=== PATIENT | female | born 1965 | race Caucasian/White ===

== ENCOUNTER 2019-09-30 15:08 | Outpatient (CLI) | payer BC, SELFPAY ==
--- NOTE | ~2019-09-30 | MM_ITS ---
EXAMINATION: MM screening marcin BI w tommy HISTORY: Screening mammogram TECHNIQUE: Craniocaudal and mediolateral oblique 3-D tomosynthesis images were obtained and synthetic 2-D images were generated. CAD analysis was submitted and interpreted. COMPARISON: 09/21/2018, 09/17/2017, 09/04/2016 bilateral digital screening mammogram examinations BREAST PARENCHYMAL COMPOSITION: There are scattered areas of fibroglandular density. FINDINGS: There is no evidence of suspicious mass, calcification, or architectural distortion to sugg est malignancy in either breast. There has been no suspicious interval change. IMPRESSION: 1. No mammographic evidence of malignancy. 2. Recommend routine screening mammography in one year. BI-RADS Category 1: Negative Reviewed, dictated and finalized at location A.
== END 2019-09-30 15:09 | disposition home or self-care (01) ==
LOC: ANHIMG 15:17
PROVIDERS: PCP Family Medicine; Visit Provider Advanced Practice Midwife
DX: Z12.31 Encounter for screening mammogram for malignant neoplasm of breast (principal)
CPT/HCPCS: 77063; 77067

== ENCOUNTER 2019-10-22 08:06 | Emergency (ER) | payer BC, SELFPAY ==
--- NOTE | ~2019-10-22 | XR_ITS ---
EXAMINATION: XR ankle LT min 3V DATE: 10/22/2019 08:42 INDICATION: Left ankle pain TECHNIQUE: Anteroposterior, lateral, mortise, and additional oblique view of the ankle were obtained. COMPARISON: None. FINDINGS: There is lateral soft tissue swelling. No fracture, dislocation, or subluxation is identifi ed. Ankle mortise is normal. Dorsal and plantar calcaneal enthesophytes are noted. IMPRESSION: 1. Soft tissue swelling without acute osseous abnormality. Reviewed, dictated and finalized at location A.
--- NOTE | ~2019-10-22 | XR_ITS ---
EXAMINATION: XR foot LT min 3V DATE: 10/22/2019 08:42 INDICATION: Left foot pain TECHNIQUE: Dorsoplantar, lateral, and 2 oblique views of the left foot were obtained. COMPARISON: 06/11/2009 FINDINGS: There is no fracture, dislocation, or subluxation. Dorsal and plantar calcaneal enthesophyt es are noted. There is dorsal and lateral soft tissue swelling of the foot. IMPRESSION: 1. Soft tissue swelling without acute osseous abnormality. Reviewed, dictated and finalized at location A.
[2019-10-22 08:25] VITALS: BP 134/80; PULSE 102; RESP 16; TEMP 37.4; O2SAT 99
--- NOTE | 2019-10-22 08:29 | PC.NURSE ---
0826- Pt taken straight to xray from triage
--- NOTE | 2019-10-22 08:37 | ED.LOWEXIN ---
HPI - Extremity Injury (Lower) General Chief Complaint: Extremity Injury, Lower Stated Complaint: Ankle injury Source: patient and RN notes reviewed Mode of arrival: ambulatory (crutches) Limitations: no limitations History of Present Illness HPI Narrative: This is a 54 years old female presents to the office for an evaluation of left ankle injury last night. She was going down the step and missed a step, twisted and inverted her ankle. Currently, she complains of pain and swelling. She tried neo bandage, ice and tylenol for her symptoms. Denies head injury/dizziness prior to accident. Denies history of the fracture/surgery on affected area. Related Data Home Medications Medication Instructions Recorded Confirmed atorvastatin [Lipitor] 10 mg PO DAILY 10/22/19 10/22/19 Allergies Allergy/AdvReac Type Severity Reaction Status Date / Time metronidazole Allergy Unknown Unknown Verified 10/22/19 08:47 Penicillins Allergy Unknown Skin Verified 10/22/19 08:47 irritation Review of Systems Review of Systems: Narrative: CONSTITUTIONAL: Denies feeling ill CARDIOVASCULAR: Denies chest pain, palpitation RESPIRATORY: Denies dyspnea, wheezing GASTROINTESTINAL: Denies abdominal pain, nausea, vomiting SKIN: Denies rash/skin abrasion MUSCULOSKELETAL: Reports right knee pain and backpain after injury which has resolved. Reports left ankle/foot pain with swelling. NEUROLOGIC: Denies lightheaded All other systems reviewed are negative, except as documented in HPI. [facility] Past Medical History Medical History (Updated 10/22/19 @ 08:58 by HI De La Torre) Diverticulitis HLD (hyperlipidemia) Surgical History Surgical History H/O colonoscopy H/O lumbar discectomy Family History Family History Sibling Diabetes mellitus Depression Family history of Parkinson's disease Carcinoma of colon Mother Depression Family history of Parkinson's disease Family history of dementia Father Carcinoma of colon Other No family history of cardiovascular disease No family history of malignant neoplasm Social History Social History Alcohol intake: current Gender identity (if verbalized by the patient): Female Comments At time of signature, I agree with nursing past medical, surgical, social and family history. There is no relevant family history pertinent to the presenting complaint. Exam Narrative: Exam Narrative: GENERAL: This is a well-nourished, well-developed patient, in no apparent distress. CARDIOVASCULAR: Regular rate and rhythm without murmurs, gallops, or rubs. RESPIRATORY: Clear to auscultation. Breath sounds equal bilaterally. No wheezes, rales, or rhonchi. GASTROINTESTINAL: Abdomen soft, non-tender, nondistended. Bowel sounds are active. No guarding. SKIN: warm, intact with no suspicious lesions or rash, good texture and turgor. NEURO: awake, alert, and oriented to person, place and time. There were no obvious focal neurologic abnormalities. EXTREMITIES: The ankle is swollen and tender over the lateral aspect but the skin is intact and there is no ligamentous instability. There is no deformity. The foot and toes are warm and well-perfused; however there is tenderness over the dorsal aspect of foot without swelling/deformity. Sensation to pain and light touch is intact. The skin is intact. Course Vital Signs Vital signs: Vital Signs Temperature 99.3 F 10/22/19 08:25 Pulse Rate 102 H 10/22/19 08:25 Respiratory Rate 16 10/22/19 08:25 Blood Pressure 134/80 10/22/19 08:25 Pulse Oximetry 99 10/22/19 08:25 Temperature 99.3 F 10/22/19 08:25 Pulse Rate 102 H 10/22/19 08:25 Respiratory Rate 16 10/22/19 08:25 Blood Pressure 134/80 10/22/19 08:25 Pulse Oximetry 99 10/22/19 08:25 MDM - Extremity Injury (Low
== END 2019-10-22 09:00 | disposition home or self-care (01) ==
PROVIDERS: Emergency Provider Nurse Practitioner; PCP Family Medicine
DX: S93.402A Sprain of unspecified ligament of left ankle, initial encounter (principal); S96.912A Strain of unspecified muscle and tendon at ankle and foot level, left foot, initial encounter; W10.9XXA Fall (on) (from) unspecified stairs and steps, initial encounter; S99.922A Unspecified injury of left foot, initial encounter; E78.5 Hyperlipidemia, unspecified
CPT/HCPCS: 73610; 73630; 99213; G0463

== ENCOUNTER 2020-08-16 14:15 | Outpatient (CLI) | payer BC, SELFPAY ==
--- NOTE | 2020-08-16 14:24 | ECHO_ITS ---
Patient Info Name: Lakia Dutta Age: 55 years : 1965 Gender: Female Ht: 62 in Wt: 245 lbs BSA: 2.27 m2 HR: 89 bpm BP: 131 / 95 mmHg Technical Quality: Poor Exam Date: 08/16/2020 2:48 PM Exam Location: [facility] Patient Status: Outpatient Admit Date: 08/16/2020 Staff Ordering Physician: Radha Hagen PA-C Turkish Line Attendant: BETTYE Attending Provider: Radha Hagen PA-C Referring Physician: Xiao NAZARIO; Exam Type: CA echo doppler color flow Study Info Indications - LOCALIZED EDEMA Complete two-dimensional, color flow and Doppler transthoracic echocardiogram is performed. Summary 1. Complete two-dimensional, color flow and Doppler transthoracic echocardiogram is performed. 2. Technically suboptimal study due to poor sonographic images. 3. Left ventricular chamber dimension is normal. 4. Left ventricular systolic function is normal, estimated at 55-60%. 5. The left ventricular diastolic function is normal. 6. E/e' 6 is not elevated. 7. No pulmonary hypertension, estimated pulmonary arterial systolic pressure is 9 mmHg. Left Ventricle E/e' 6 is not elevated. Technically suboptimal study due to poor sonographic images. Left ventricular chamber dimension is normal. Left ventricular systolic function is normal, estimated at 55-60%. The left ventricular diastolic function is normal. Right Ventricle Right ventricular chamber dimension is normal. Right ventricular systolic function is normal. Left Atria Left atrial chamber dimension is normal. Right Atria Right atrial chamber dimension is normal. Aortic Valve The aortic valve is not well visualized. There is no aortic valve stenosis. There is no aortic valve regurgitation. Pulmonic Valve There is no pulmonic regurgitation. Mitral Valve There is no mitral valve stenosis. There is no mitral valve regurgitation. Tricuspid Valve There is no tricuspid valve regurgitation. No pulmonary hypertension, estimated pulmonary arterial systolic pressure is 9 mmHg. Pericardium/Pleural There is no pericardial effusion. Inferior Vena Cava Normal inferior vena cava with >50% collapse upon inspiration consistent with normal right atrial pressure, 5 mmHg. Aorta The aortic root size at the sinus of Valsalva is normal. Left Ventricular Outflow Tract Name Value Normal LVOT 2D LVOT Diameter 2.2 cm LVOT Doppler LVOT Peak Gradient 4 mmHg LVOT Mean Gradient 2 mmHg LVOT VTI 16 cm LVOT VTI/AV VTI Ratio 0.7 LVOT Stroke Volume 64 ml LVOT CO 15.7 l/min LVOT CI 6.9 l/min/m2 Pulmonic Valve Name Value Normal PV Doppler PV Peak Gradient 6
== END 2020-08-16 14:16 | disposition home or self-care (01) ==
PROVIDERS: PCP Family Medicine; Visit Provider Physician Assistant
DX: R60.0 Localized edema (principal); Z86.19 Personal history of other infectious and parasitic diseases
CPT/HCPCS: 93306

== ENCOUNTER 2021-04-02 16:52 | Emergency (ER) | payer BC, SELFPAY ==
[2021-04-02 16:54] VITALS: BP 147/94; PULSE 118; RESP 20; TEMP 36.3; O2SAT 98
[2021-04-02 18:52] VITALS: BP 119/90; PULSE 110; TEMP 37.9; O2SAT 95
--- NOTE | 2021-04-02 20:38 | PC.NURSE ---
Pt approached triage desk and states Im not waiting any more. You can note that . Pt then ambulated out of ED with steady gait, in no obvious distress.
== END 2021-04-03 03:16 | disposition left against medical advice (07) ==
LOC: ANHED 20:42
PROVIDERS: PCP Family Medicine
DX: Z53.21 Procedure and treatment not carried out due to patient leaving prior to being seen by health care provider (principal)
CPT/HCPCS: 99199

== ENCOUNTER → 2021-04-03 14:56 | Outpatient (CLI) | payer BC, SELFPAY ==
--- NOTE | ~2021-04-03 | CT_ITS ---
EXAMINATION: CT abdomen pelvis w con DATE: 04/03/2021 15:19 INDICATION: Left lower quadrant abdominal pain. TECHNIQUE: Computed tomography (CT) of the abdomen and pelvis was performed with 100 mL Omnipaque 350 intravenous contrast. Automated exposure control and iterative reconstruction technique were employe d. The dose-length product was 1066.51 mGy-cm. COMPARISON: CT abdomen and pelvis 06/12/2018 FINDINGS: The visualized portions of the lung bases demonstrate mild atelectasis. There are bilateral posterior diaphragmatic hernias containing fat. No pleural effusion. The heart size is normal. No pe ricardial effusion. There is a small sliding hiatal hernia. There is a 6 mm cyst in the liver. The ga llbladder, spleen, pancreas, adrenal glands, and kidneys are normal. There are scattered diverticula in the colon. There is fat stranding around a diverticulum of the sigmoid colon, consistent with dive rticulitis. There are no dilated loops of bowel. The appendix is normal. There are no pathologically enlarged lymph nodes. There is no free intraperitoneal fluid. There is moderate lower lumbar spondylo sis. IMPRESSION: 1. Acute sigmoid diverticulitis. No perforation or abscess. Reviewed, dictated and finalized at location D. RACT GRAPHIC DESIGNER
== END ==
PROVIDERS: PCP Family Medicine; Visit Provider Physician Assistant
DX: K57.32 Diverticulitis of large intestine without perforation or abscess without bleeding (principal)
CPT/HCPCS: 74177; Q9967

== ENCOUNTER 2021-06-08 09:09 | Outpatient (CLI) | payer BC, SELFPAY ==
--- NOTE | ~2021-06-08 | MM_ITS ---
EXAMINATION: MM screening marcin BI w tommy HISTORY: Screening TECHNIQUE: Craniocaudal and mediolateral oblique 3-D tomosynthesis images were obtained and synthetic 2-D images were generated. CAD analysis was submitted and interpreted. COMPARISON: Comparison to multiple prior studies sequentially, with oldest reviewed study dated 08/24. BREAST PARENCHYMAL COMPOSITION: There are scattered areas of fibroglandular density. FINDINGS: There is no evidence of suspicious mass, calcification, or architectural distortion to sugg est malignancy in either breast. There has been no suspicious interval change. IMPRESSION: 1. No mammographic evidence of malignancy. 2. Recommend routine screening mammography in one year. BI-RADS Category 1: Negative Reviewed, dictated and finalized at location A. RUCTIONAL LEADER
== END 2021-06-08 09:10 | disposition home or self-care (01) ==
LOC: ANHIMG 09:11
PROVIDERS: PCP Family Medicine; Visit Provider Family Medicine
DX: Z12.31 Encounter for screening mammogram for malignant neoplasm of breast (principal)
CPT/HCPCS: 77063; 77067

== ENCOUNTER 2021-11-14 15:43 | Emergency (ER) | payer BC, SELFPAY ==
[2021-11-14 15:53] VITALS: BP 147/85; PULSE 98; RESP 18; TEMP 36.6; O2SAT 99
--- NOTE | 2021-11-14 15:55 | ED.EAR ---
HPI - Ear Problem General Chief complaint: Ear Stated complaint: earache Time Seen by Provider: 11/14/21 15:55 Source: patient Mode of arrival: ambulatory Limitations: no limitations History of Present Illness HPI Narrative: 56-year-old female presents with complaint of right ear pain for 4 days. States that she went swimming 6 days ago, has a history of swimmer's ear. Did not have her earplugs the day that she went swimming. Denies drainage from right ear. No fever or chills. Has been placing hydrogen peroxide, sweet oil with no relief of pain. Today purchased a homeopathic eardrop to treat pain that is also not helping. No change to hearing. All systems reviewed and negative except as noted above. Related Data Allergies Allergy/AdvReac Type Severity Reaction Status Date / Time metronidazole AdvReac Mild Hives Verified 11/14/21 15:56 Penicillins AdvReac Mild Hives Verified 11/14/21 15:56 Review of Systems Review of Systems: CONSTITUTIONAL: Denies fever, chills, or sweats. EYES: Denies visual changes, redness, or discharge. ENT: Denies rhinorrhea, congestion, sore throat. Reports right ear pain. CARDIOVASCULAR: Denies chest pain, palpitations, or edema. RESPIRATORY: Denies cough or dyspnea. GASTROINTESTINAL: Denies abdominal pain, nausea, vomiting, or diarrhea. GENITOURINARY: Denies dysuria or hematuria. SKIN: Denies rash or itching. MUSCULOSKELETAL: Denies back pain, joint pain, or myalgia. NEUROLOGIC: Denies headache, numbness, or weakness. PSYCHIATRIC: Denies anxiety or depression. All other systems reviewed are negative, except as documented in HPI. [facility] Past Medical History Medical History Diverticulitis HLD (hyperlipidemia) Surgical History Surgical History H/O colonoscopy H/O lumbar discectomy Family History Family History Sibling Diabetes mellitus Depression Family history of Parkinson's disease Carcinoma of colon Esophageal cancer Mother Depression Family history of Parkinson's disease Family history of dementia Father Carcinoma of colon Other No family history of cardiovascular disease No family history of malignant neoplasm Social History Social History (Updated 06/17/21 @ 14:16 by Yuli Main MA) Smoking packs per day: 1 Smoking cigarettes per day: 20.0 Smoking status: Current every day smoker Alcohol intake: current Substance use: never Gender identity (if verbalized by the patient): Female Comments At time of signature, agree with nursing past medical, surgical, social and family history. There is no relevant family history pertinent to the presenting complaint. Exam Narrative: GENERAL: This is a well-nourished, well-developed patient, in no apparent distress. HEAD: normocephalic, atraumatic. EYES: PERRL. Sclera clear/white. Vision is grossly intact. EARS: External ears normal, auditory canals clear and without drainage. Left TM is normal. Right TM yellow purulence, retracted. NOSE: External nose normal NECK: Neck supple, non-tender without lymphadenopathy, masses or thyromegaly. CARDIOVASCULAR: Regular rate and rhythm without murmurs, gallops, or rubs. RESPIRATORY: Clear to auscultation. Breath sounds equal bilaterally. No wheezes, rales, or rhonchi. SKIN: warm, Dry, intact with no suspicious lesions or rash, good texture and turgor. NEURO: awake, alert, and oriented to person, place and time. There were no obvious focal neurologic abnormalities. EXTREMITIES: No joint tenderness, effusion, or edema noted. Course Course Level of Care: Express Care Visit Vital Signs Vital signs: Vital Signs Temperature 36.6 C 11/14/21 15:53 Pulse Rate 98 11/14/21 15:53 Respiratory Rate 18 11/14/21 15:53 Blood Pressure 147/85 H 11/14/21 15:53 Pulse Oximetry 99 11/14/21 15
== END 2021-11-14 16:03 | disposition home or self-care (01) ==
PROVIDERS: Emergency Provider Nurse Practitioner Family; PCP Family Medicine
DX: H66.91 Otitis media, unspecified, right ear (principal); F17.210 Nicotine dependence, cigarettes, uncomplicated; E78.5 Hyperlipidemia, unspecified
CPT/HCPCS: 99213; G0463

== ENCOUNTER → 2021-11-29 14:19 | Outpatient (CLI) | payer BC, SELFPAY ==
--- NOTE | ~2021-11-29 | DEXA_ITS ---
Bone Density Report Name: BARBARA JARAMILLO Age: 56 Sex: Female Ethnicity: White Date of : 1965 Indication: postmenopausal; screening for osteoporosis; prior fracture; Referring Provider: Rosa Duarte Study: Bone densitometry was performed. Exam Date: November 29, 2021 Accession number: [id number] Bone Density: Region BMD T-score Z-score Classification AP Spine (L1-L4) 0.993 -0.5 0.5 Normal Femoral Neck (Left) 0.851 0.0 1.0 Normal Total Hip (Left) 1.107 1.3 2.0 Normal Femoral Neck (Right) 0.929 0.7 1.7 Normal Total Hip (Right) 1.171 1.9 2.5 Normal Total Hip Mean 1.139 1.6 2.3 Normal World Health Organization criteria for BMD impression classify patients as: Normal (T-score at or above -1.0), Osteopenia (T-score between -1.0 and -2.5), or Osteoporosis (T-score at or below -2.5). 10-year Fracture Risk: FRAX not reported because: All T-scores for Spine Total, Hip Total, Femoral Neck at or above -1.0 Clinical Information Provided by Patient: Has had a low trauma fracture Smokes Has used the following medications: Vitamin D Patient maximum height was 64.5 Menopause Age: 54 No regular weight bearing exercise Drinks caffeinated beverages Onset of menses at age 14 Number of children 2 Missed period for more than 6 months in a row Impression: The patient has normal bone mass. The patient has risk factors, including: smoking, previous fracture. Discussion: BONE DENSITY IS ABOVE THE MINIMUM DESIRABLE LEVEL AT ALL SKELETAL SITES TESTED. This patient?s bone mineral density is above the minimum desirable level (T-score -1.0 or better) at all sites measured. The patient should follow a healthful lifestyle (good nutrition with adequate calcium and vitamin D, and appropriate weight-bearing exercise). Follow-Up: Consider repeating this study in 5 years or sooner if there is some new clinical indication. Reported by: BRAULIO on 11/29/2021 2:39:00 PM. Reviewed, dictated and finalized at location A. [facility]
== END ==
PROVIDERS: PCP Family Medicine; Visit Provider Advanced Practice Midwife
DX: Z13.820 Encounter for screening for osteoporosis (principal); Z78.0 Asymptomatic menopausal state
CPT/HCPCS: 77080

== ENCOUNTER 2022-06-13 16:09 | Outpatient (CLI) | payer BC, SELFPAY ==
--- NOTE | 2022-06-13 | ECG_ITS ---
Measurements Intervals [place] Rate: 101 P: 51 NV: 219 QRS: 17 QRSD: 81 T: 41 QT: 342 QTc: 443 Interpretive Statements SINUS TACHYCARDIA WITH FIRST DEGREE AV BLOCK BORDERLINE ECG NO PREVIOUS ECG AVAILABLE FOR COMPARISON Electronically Signed On 06-13-2022 16:51:27 PURCHASING INTERNSHIP by Alcon Hale D.O.
== END 2022-06-13 16:10 | disposition home or self-care (01) ==
LOC: ANHCARD 16:11
PROVIDERS: PCP Family Medicine; Visit Provider Obstetrics & Gynecology
DX: E66.9 Obesity, unspecified (principal); I44.0 Atrioventricular block, first degree
CPT/HCPCS: 93005

== ENCOUNTER 2022-07-11 09:06 | Outpatient (CLI) | payer BC, SELFPAY ==
--- NOTE | ~2022-07-11 | MM_ITS ---
EXAMINATION: MM screening marcin BI w tommy HISTORY: Screening TECHNIQUE: Craniocaudal and mediolateral oblique 3-D tomosynthesis images were obtained and synthetic 2-D images were generated. CAD analysis was submitted and interpreted. COMPARISON: Comparison to multiple prior studies sequentially, with oldest reviewed study dated 08/30. BREAST PARENCHYMAL COMPOSITION: There are scattered areas of fibroglandular density. FINDINGS: There is a focal asymmetry medially in the left breast on CC view. Right breast is stable w ithout evidence for malignancy. IMPRESSION: 1. Focal asymmetry medially in the left breast on CC view. 2. Additional mammographic views and possible breast ultrasound are recommended. BI-RADS Category 0: Incomplete: Needs additional imaging evaluation. Reviewed, dictated and finalized at location A. IMPRESSION: 1. Focal asymmetry medially in the left breast on CC view. 2. Additional mammographic views and possible breast ultrasound are recommended . BI-RADS Category 0: Incomplete: Needs additional imaging evaluation.
== END 2022-07-11 09:07 | disposition home or self-care (01) ==
LOC: ANHIMG 09:08
PROVIDERS: PCP Family Medicine; Visit Provider Advanced Practice Midwife
DX: Z12.31 Encounter for screening mammogram for malignant neoplasm of breast (principal); R92.8 Other abnormal and inconclusive findings on diagnostic imaging of breast
CPT/HCPCS: 77063; 77067

== ENCOUNTER 2022-08-05 13:13 | Outpatient (CLI) | payer BC, SELFPAY ==
--- NOTE | ~2022-08-05 | MM_ITS ---
EXAMINATION: MM diagnostic marcin LT w tommy HISTORY: Left breast asymmetry on screening mammogram TECHNIQUE: Additional 3-D tomosynthesis images of the left breast were performed and synthetic 2-D im ages were generated. CAD analysis was submitted and interpreted. COMPARISON: 07/11/2022, 06/08/2021, 09/30/2019 FINDINGS: There is a return to baseline fibroglandular appearance with spot compression of the left b reast in the area questioned on screening mammogram. IMPRESSION: 1. No mammographic evidence of malignancy. 2. Recommend routine screening mammography in one year. BI-RADS Category 1: Negative Reviewed, dictated and finalized at location A.
== END 2022-08-05 13:14 | disposition home or self-care (01) ==
PROVIDERS: PCP Family Medicine; Visit Provider Advanced Practice Midwife
DX: R92.8 Other abnormal and inconclusive findings on diagnostic imaging of breast (principal)
CPT/HCPCS: 77061; 77065; G0279

== ENCOUNTER 2023-03-28 13:16 | Emergency (ER) | payer BC, SELFPAY ==
--- NOTE | ~2023-03-28 | XR_ITS ---
EXAMINATION: XR chest 2V 03/28/2023 14:53 INDICATION: Cough and wheezing for one week PROCEDURE: 2 view chest COMPARISON: 10/17/2017 FINDINGS: The lungs are clear. The cardiomediastinal silhouette is within normal limits. There are no pleural effusions. There is no pneumothorax suspected. IMPRESSION: 1: NO ACUTE CARDIOPULMONARY DISEASE. Reviewed, dictated and finalized at location A. FACTURING TECHNOLOGY PROFESSOR
[2023-03-28 13:34] VITALS: BP 128/86; PULSE 87; RESP 16; TEMP 36.6; O2SAT 97
--- NOTE | 2023-03-28 14:47 | ED.URI ---
HPI - URI/Sore Throat General Chief Complaint: Upper Respiratory Infection Stated Complaint: Shortness of Breath;Cold Time Seen by Provider: 03/28/23 14:41 Source: patient and RN notes reviewed Mode of arrival: ambulatory Limitations: no limitations History of Present Illness HPI Narrative: Patient presents today complaining of 5 day history of cough, chest congestion, shortness of breath. She also reports a subjective fever. She has been using TheraFlu without relief and Mucinex which does provide some mild relief. No known asthma or COPD. She does smoke 1 pack per day. Related Data Allergies Allergy/AdvReac Type Severity Reaction Status Date / Time metronidazole AdvReac Mild Hives Verified 03/28/23 14:27 Penicillins AdvReac Mild Hives Verified 03/28/23 14:27 Review of Systems Review of Systems: CONSTITUTIONAL: Denies body aches, chills, or sweats.+ subjective fever EYES: Denies visual changes, redness, or discharge. ENT: Denies rhinorrhea, congestion, sore throat, or otalgia. CARDIOVASCULAR: Denies chest pain, palpitations, or edema. RESPIRATORY: + cough, shortness of breath GASTROINTESTINAL: Denies abdominal pain, nausea, vomiting, or diarrhea. GENITOURINARY: Denies dysuria or hematuria. SKIN: Denies rash, itching, or wounds. MUSCULOSKELETAL: Denies back pain, joint pain, or myalgia. NEUROLOGIC: Denies headache, numbness, tingling, or weakness. PSYCH: Denies depression or anxiety. [facility] Past Medical History Medical History Diverticulitis HLD (hyperlipidemia) Surgical History Surgical History H/O colonoscopy H/O lumbar discectomy Family History Family History Sibling Diabetes mellitus Depression Family history of Parkinson's disease Carcinoma of colon Esophageal cancer Mother Depression Family history of Parkinson's disease Family history of dementia Father Carcinoma of colon Other No family history of cardiovascular disease No family history of malignant neoplasm Social History Social History Smoking packs per day: 1 Smoking cigarettes per day: 20.0 Years smoked: 10 Smoking pack-years: 10.00 Smoking status: Current every day smoker Tobacco type: cigarettes Alcohol intake: current Substance use: never Lack of Transportation: No Lack of Food: Never True Current Housing: I Have Housing Concerned About Future Housing: No Difficulty Paying Gas/Electric Bills: No Difficulty Paying for Meds: No Currently Unemployed: No Education: Associate Degree Difficulty w/ Childcare or Family Care: No Gender identity (if verbalized by the patient): Female Comments At time of signature, I have reviewed and agree with nursing past medical, surgical, social and family history unless otherwise noted. Please see nursing chart for further information. There is no relevant family history pertinent to the presenting complaint Exam Narrative: GENERAL: Mildly ill-appearing, well-nourished, and in no acute distress. HEAD: Normocephalic, atraumatic. EYES: EOMI. No redness or drainage. Conjunctivae normal. ENT: Mucous membranes pink and moist. Nares clear. No rhinorrhea. TMs normal bilaterally. Throat normal. Uvula midline. NECK: Normal AROM. Supple. No lymphadenopathy. CHEST: No respiratory distress. Inspiratory and expiratory wheezes throughout. Rhonchi in the bilateral lower lobes. HEART: Regular rate and rhythm. No murmur appreciated. EXTREMITIES: Normal range of motion. No edema. SKIN: Warm, dry, no rash. Capillary refill normal. Normal skin turgor. NEURO: No focal deficits. Alert and oriented x3. Gait steady. PSYCH: Normal affect. No signs of depression or anxiety. Course Course Level of Care: Express Car
[2023-03-28] MEDS: ALBUTEROL SULFATE NEB 2.5 MG/3 ML INH INHALATION (14:54)
[2023-03-28] MEDS: IPRATROPIUM BR 0.02% INH SOLN 0.5 MG/2.5 ML VIAL INHALATION (14:54)
== END 2023-03-28 18:16 | disposition home or self-care (01) ==
PROVIDERS: Emergency Provider Nurse Practitioner; PCP Family Medicine
DX: J22 Unspecified acute lower respiratory infection (principal); E78.5 Hyperlipidemia, unspecified; F17.210 Nicotine dependence, cigarettes, uncomplicated
CPT/HCPCS: 71046; 94640; 99213; G0463

== ENCOUNTER 2023-05-13 01:36 | Day surgery (SDC) | payer BC, SELFPAY ==
[2023-04-20 14:18] VITALS: BMI 43.5
--- NOTE | 2023-05-11 11:43 | SUR.PREOP ---
Patient called regarding upcoming procedure. Reviewed preop instructions, appointment times, and procedure prep.
[2023-05-13 07:55] VITALS: BP 131/81; PULSE 96; RESP 19; TEMP 36.2; O2SAT 99
[2023-05-13] MEDS: LACTATED RINGERS 1,000 ML 150 ML IV CONT (08:04)
--- NOTE | 2023-05-13 08:15 | WPDANESEPPF ---
Anes - Initial Pre Proc Eval Procedure: Operation Date: 05/13/23 09:00 Proposed Procedures p Colonoscopy - Shaw Davis MD Date/Time: 05/13/23 08:15 Surgeon: Shaw Davis MD Pre Op Diagnosis: Personal hx polyps Patient Data Age: 57 Gender: F Height: 1.6 m Weight: 108.4 kg Last Vital Signs Temp 97.1 F L 05/13/23 07:55 Pulse 96 05/13/23 07:55 Resp 19 05/13/23 07:55 BP 131/81 05/13/23 07:55 Pulse Ox 99 05/13/23 07:55 O2 Del Method Room Air 05/13/23 07:55 Allergies Allergy/AdvReac Type Severity Reaction Status Date / Time metronidazole AdvReac Mild Hives Verified 05/13/23 07:54 Penicillins AdvReac Mild Hives Verified 05/13/23 07:54 Home Medications Medication Instructions Recorded Confirmed Type albuterol sulfate 90 mcg/actuation 2 inh inhalation Q4H PRN shortness 02/14/22 04/20/23 Rx aerosol inhaler of breath or wheezing #8.5 grams atorvastatin 10 mg tablet See Rx Instructions .Route 03/12/23 04/20/23 Rx .COMPLEX #90 tabs lactobacillus combination no.9 4 1 cell PO DAILY 04/20/23 04/20/23 History billion cell capsule (Adult 50 Plus Probiotic) Patient hx anesthesia problems: none Family hx anesthesia problems: none Results Review: All pre-operative results and documents have been reviewed as part of the pre-operative evaluation. PMFSH Past Medical History Medical History Diverticulitis HLD (hyperlipidemia) Surgical History Surgical History H/O colonoscopy H/O lumbar discectomy Family History Family History Sibling Diabetes mellitus Depression Family history of Parkinson's disease Carcinoma of colon Esophageal cancer Mother Depression Family history of Parkinson's disease Family history of dementia Father Carcinoma of colon Other No family history of cardiovascular disease No family history of malignant neoplasm Social History Social History Smoking packs per day: 1 Smoking cigarettes per day: 20.0 Years smoked: 10 Smoking pack-years: 10.00 Smoking status: Former smoker Tobacco type: cigarettes Alcohol intake: current Drinks per week: 2 Substance use: never Substance use type: does not use Lack of Transportation: No Lack of Food: Never True Current Housing: I Have Housing Concerned About Future Housing: No Difficulty Paying Gas/Electric Bills: No Difficulty Paying for Meds: No Currently Unemployed: No Education: Associate Degree Difficulty w/ Childcare or Family Care: No Living arrangements: with friend(s) Additional living arrangements comments: lives with boyfriend Gender identity (if verbalized by the patient): Female Spiritual care concerns: No Anes - Eval Final PreProcedure Day of Procedure 05/13/23 08:15 Patient weight: morbidly obese Heart: regular rate and rhythm Lungs: clear to auscultation Airway: Mallampati scale class II Neurological: alert and oriented Last oral intake: >/= 8 hours ASA classification: III Emergent: no Anesthetic plan: proceed Anesthesia type and monitoring: general GIVS and standard monitoring Results Review: All pre-operative results and documents have been reviewed as part of the pre-operative evaluation. Informed Consent: The patient's anesthetic plan and its attendant risks and benefits were discussed with the patient/family/POA. Questions were solicited and answers provided to the satisfaction of the patient/family/POA.
--- NOTE | 2023-05-13 08:36 | PM.HPGS ---
History of Present Illness History of Present Illness Consent: Risks, benefits, and alternatives have been discussed and questions answered. Patient agrees to proceed with procedure. Chief complaint: Personal hx polyps Narrative: Lakia Dutta is a 57 year old female with colon polyp in 2018, also sister with colon cancer Review of Systems Constitutional: Constitutional: Denies headache(s) and Denies weakness Eyes: Eyes: Denies blurry vision ENT: Reports Normal hearing present, Denies headache(s) and Denies neck pain Cardiovascular: Cardiovascular: Denies chest pain and Denies dyspnea Respiratory: Respiratory: Denies dyspnea Gastrointestinal: Gastrointestinal: Reports no additional gastrointestinal complaints Genitourinary: Genitourinary: Denies dysuria Musculoskeletal: Musculoskeletal: Denies neck pain Integumentary/Breasts: Skin/Breast: Denies dry skin Neurologic: Reports Normal hearing present, Denies headache(s) and Denies weakness Psychiatric: Psychiatric: Denies anxiety Endocrine: Endocrine: Denies change in body appearance Hematologic/Lymphatic: Hematologic/Lymphatic: Denies easy bleeding Allergic/Immunologic: Allergic/Immunologic: Denies urticaria PMFSH Past Medical History Medical History (Updated 05/13/23 @ 08:37 by Shaw Davis MD) Diverticulitis Family history of colon cancer HLD (hyperlipidemia) Surgical History Surgical History H/O colonoscopy H/O lumbar discectomy Family History Family History Sibling Diabetes mellitus Depression Family history of Parkinson's disease Carcinoma of colon Esophageal cancer Mother Depression Family history of Parkinson's disease Family history of dementia Father Carcinoma of colon Other No family history of cardiovascular disease No family history of malignant neoplasm Social History Social History Smoking packs per day: 1 Smoking cigarettes per day: 20.0 Years smoked: 10 Smoking pack-years: 10.00 Smoking status: Former smoker Tobacco type: cigarettes Alcohol intake: current Drinks per week: 2 Substance use: never Substance use type: does not use Lack of Transportation: No Lack of Food: Never True Current Housing: I Have Housing Concerned About Future Housing: No Difficulty Paying Gas/Electric Bills: No Difficulty Paying for Meds: No Currently Unemployed: No Education: Associate Degree Difficulty w/ Childcare or Family Care: No Living arrangements: with friend(s) Additional living arrangements comments: lives with boyfriend Gender identity (if verbalized by the patient): Female Spiritual care concerns: No Meds Home Medications and Allergies Home Medications Medication Instructions Recorded Confirmed Type albuterol sulfate 90 mcg/actuation 2 inh inhalation Q4H PRN shortness 02/14/22 04/20/23 Rx aerosol inhaler of breath or wheezing #8.5 grams atorvastatin 10 mg tablet See Rx Instructions .Route 03/12/23 04/20/23 Rx .COMPLEX #90 tabs lactobacillus combination no.9 4 1 cell PO DAILY 04/20/23 04/20/23 History billion cell capsule (Adult 50 Plus Probiotic) Allergies Allergy/AdvReac Type Severity Reaction Status Date / Time metronidazole AdvReac Mild Hives Verified 05/13/23 07:54 Penicillins AdvReac Mild Hives Verified 05/13/23 07:54 Vital Signs Vital Signs - 24 hr 05/13/23 07:55 Temperature 97.1 F L Pulse Rate 96 Respiratory Rate 19 Blood Pressure 131/81 Pulse Oximetry 99 Oxygen Delivery Room Air Exam Const: General: comfortable and no acute distress HENMT: Face/Nose/Sinus: Normal nares present Eyes: General: appearance normal, both eyes and all related structures Neck: Neck: no JVD Resp: Auscultation: clear to auscultation bilat
[2023-05-13 08:53] VITALS: BP 108/77; PULSE 88; RESP 14; O2SAT 94
[2023-05-13 09:03] VITALS: BP 102/68; PULSE 80; RESP 22; O2SAT 98
[2023-05-13 09:13] VITALS: BP 103/68; PULSE 74; RESP 18; O2SAT 99
== END 2023-05-13 09:28 | disposition home or self-care (01) ==
PROVIDERS: PCP Family Medicine; Visit Provider Internal Medicine Gastroenterology
PROC: 0DJD8ZZ Inspection of Lower Intestinal Tract, Via Natural or Artificial Opening Endoscopic (ICD-10-PCS; CPT 45378; principal; 2023-05-13 09:00)
DX: Z12.11 Encounter for screening for malignant neoplasm of colon (principal); D12.3 Benign neoplasm of transverse colon; K64.8 Other hemorrhoids; K57.30 Diverticulosis of large intestine without perforation or abscess without bleeding; E78.5 Hyperlipidemia, unspecified; K57.92 Diverticulitis of intestine, part unspecified, without perforation or abscess without bleeding; E66.01 Morbid (severe) obesity due to excess calories; Z68.41 Body mass index [BMI] 40.0-44.9, adult; Z79.51 Long term (current) use of inhaled steroids; Z98.1 Arthrodesis status; Z87.891 Personal history of nicotine dependence; Z86.010 Personal history of colon polyps; Z80.0 Family history of malignant neoplasm of digestive organs; Z82.49 Family history of ischemic heart disease and other diseases of the circulatory system
CPT/HCPCS: 45385; 88305; J2704; J7120

== ENCOUNTER 2023-09-15 09:45 | Outpatient (CLI) | payer BC, SELFPAY ==
--- NOTE | ~2023-09-15 | MM_ITS ---
EXAMINATION: MM screening marcin BI w tommy HISTORY: Screening TECHNIQUE: Craniocaudal and mediolateral oblique 3-D tomosynthesis images were obtained and synthetic 2-D images were generated. CAD analysis was submitted and interpreted. COMPARISON: Comparison to multiple prior studies sequentially, with oldest reviewed study dated 09/17. BREAST PARENCHYMAL COMPOSITION: Not dense: There are scattered areas of fibroglandular density. FINDINGS: There is no evidence of suspicious mass, calcification, or architectural distortion to sugg est malignancy in either breast. There has been no suspicious interval change. IMPRESSION: 1. No mammographic evidence of malignancy. 2. Recommend routine screening mammography in one year. BI-RADS Category 1: Negative Reviewed, dictated and finalized at location B.
== END 2023-09-15 09:46 | disposition home or self-care (01) ==
PROVIDERS: PCP Family Medicine; Visit Provider Family Medicine
DX: Z12.31 Encounter for screening mammogram for malignant neoplasm of breast (principal)
CPT/HCPCS: 77063; 77067

== ENCOUNTER 2024-06-28 15:22 | Outpatient (CLI) | payer BC, SELFPAY ==
--- NOTE | ~2024-06-28 | XR_ITS ---
XR knee LT min 4V 06/28/2024 15:50 Indication: Left knee pain Procedure: 4 views left knee Comparison: No prior studies for comparison. Findings: No fracture, subluxation or dislocation. There is mild degenerative change of the lateral a nd patellofemoral compartments with joint space narrowing. No foreign bodies. Mild valgus angulation. Impression: 1: Mild osteoarthritis of the left knee. Reviewed, dictated and finalized at location A. Impression: 1: Mild osteoarthritis of the left knee.
== END 2024-06-28 15:23 | disposition home or self-care (01) ==
LOC: GOSHIMG 15:23
PROVIDERS: PCP Family Medicine; Visit Provider Family Medicine
DX: M17.12 Unilateral primary osteoarthritis, left knee (principal)
CPT/HCPCS: 73564

== ENCOUNTER 2024-10-24 10:34 | Outpatient (CLI) | payer BC, SELFPAY ==
--- NOTE | ~2024-10-24 | MM_ITS ---
EXAMINATION: screening [facility] BI w tommy INDICATION: Asymptomatic, referred for screening mammogram COMPARISON: 09/15/2023 through 09/21/2018 TECHNIQUE: Digital Breast Tomosynthesis CC, MLO views of Both breasts were obtained with computer-ai ded detection to assist in interpretation of the study. FINDINGS: There are scattered areas of fibroglandular density. There is a circumscribed mass in the superior central 12:00 right breast at middle depth centered at 7 cm posterior to the nipple. Elsewhere, there are no mammographic features of malignancy. IMPRESSION: 1. Right breast Mass. 2. No evidence of malignancy in the Left breast. RECOMMENDATION: Right breast ultrasound BI-RADS Category 0: Incomplete: Needs additional imaging evaluation. Reviewed, dictated and finalized at location B.
--- OUTSIDE RECORDS SUMMARY | 2024-10-24 10:45 | XMS_ITS | Clinical Summary ---
Author Organization [facility] [address] Address [address] [place] [address] Care Team Providers Care Segment Block Layer Name Role Phone Ana Robles DO Primary Care Provider [phone]- [phone] Allergies Active Allergy Reactions Criticality Noted Date Comments Metronidazole Hives Medium 08/22/2022 Penicillins Hives Medium 08/22/2022 Medications atorvastatin (LIPITOR) 10 mg tablet Take 1 tablet (10 mg total) by mouth daily 07/16/2022 Active vitamin D3-vitamin K2 1,250-200 mcg capsule Active phentermine 15 mg capsule Take by mouth daily 07/15/2022 Active topiramate (TOPAMAX) 50 mg tablet Take 1 tablet (50 mg total) by mouth 2 (two) times a day 07/25/2022 Active Active Problems Problem Noted Date Diagnosed Date Abnormal electrocardiogram 08/22/2022 Morbid obesity 08/22/2022 Tobacco dependence 08/22/2022 Family History Medical History Relation Name Comments Diabetes Brother ALS Mother Colon cancer Sister Relation Name Status Comments Brother Mother Sister Social History Tobacco Use Types Packs/Day Years Used Date Smoking Tobacco: Every Day Cigarettes 0.1 10 Smokeless Tobacco: Never Personal Safety Answer Date Recorded Getting School Help Needed Not on file 06/06 Comments Unknown Sex and Gender Information Value Date Recorded Sex Assigned at Not on file Legal Sex Female 3:36 PM CDT Gender Identity Female 08/22/2022 7:46 AM CDT Sexual Orientation Straight 08/22/2022 7: 46 AM CDT Obstetrics History Last Filed Vital Signs Vital Sign Reading Time Taken Comments Blood Pressure 158/108 12/19/2022 2:48 PM CDT Pulse 115 08/22/2022 9:31 AM CDT Temperature - - Respiratory Rate - - Oxygen Saturation 97% 08/22/2022 9:31 AM CDT Inhaled Oxygen Concentration - - Weight 105.7 kg (233 lb) 08/22/2022 9:31 AM CDT Height 157.5 cm (5' 2) 08/22/2022 9:31 AM CDT Body Mass Index 42.62 08/22/2022 9:31 AM CDT Plan of Treatment Health Maintenance Due Date Last Done Comments Breast Cancer Screening-Mammogram 1967 Cervical Cancer Screening 1967 Colon Cancer Screening-Colonoscopy 1967 Depression Screening 1967 Hepatitis C Screening 1967 Hepatitis B Screening 07/22/1985 Regular Well Visit/Exam 18-64 07/22/1985 Pneumococcal vaccine <65 (1 of 2 - PCV) 07/22/1986 Zoster Vaccine (1 of 2) 07/22/2017 Covid-19 Vaccine ( season) 2023 08/21/2021, 01/30/2021, 01/07/2021 Influenza Vaccine (Season Ended) 2024 01/19/20 21, 02/02/2020 DTaP/Tdap/Td Vaccine (2 - Td or Tdap) 06/08/203107/[address] [place] [address] [place] [address] Care Teams Segment Block Layer Relationship Specialty Start Date End Date Ana Robles DO PCP - General Family Medicine 08/22/22
--- OUTSIDE RECORDS SUMMARY | 2024-10-24 10:45 | XMS_ITS | Continuity of Care Document ---
Author Organization [facility] Address [address] [place] [address] [address] [place] [address] Phone Care Team Providers Care Design/Animation Instructor Name Role Phone Dahiana Siu Unavailable Unavailable Advance Directives Directive Yes / No Effective Date File Name No Information Encounters Encounter Description Practice Location Reason(s) For Visit Diagnoses Date Provider Providers Copied on Encounter [facility], [id number] [place] [address] [address], [place], [place], [id number], [place] tel:[phone] [facility] No Information [address]. [address] [facility] , [address], [place], [address], [place]. tel:[phone] Family History Family Member Type Diagnosis Age At Onset No Information Payers Payer name Insurance type Covered green party ID Authoriza tion(s) No Information Social History Type Description Quantity Date Captured Comments Sex Female Smoking Status No Information Chief Complaint And Reason For Visit No Information Reason For Referral Reason For Referral No Information History Of Present Illness Encounter Date Complaint History Of Prese nt Illness No Information Functional Status Date Functional Assessmen t No Information Instructions Date Instruction Additional Infor mation No Information Assessments Type Assessment Date No Information Patient Care Teams Name Effective Dates (start - stop) Status Members No Information
--- OUTSIDE RECORDS SUMMARY | 2024-10-24 10:45 | XMS_ITS | Referral Summary ---
Author Organization [facility] [place] [address] Address [address] [place] [address] Care Team Providers Care Statement Request Clerk Name Role Phone Ana Robles DO Primary Care Provider [phone]- [phone] Allergies Active Allergy Reactions Criticality Noted Date [...] 08/22/2022 Morbid obesity 08/22/2022 Tobacco dependence 08/22/2022 Social History Tobacco Use Types Packs/Day Years [...] Orientation Straight 08/22/2022 7: 46 AM CDT Last Filed Vital Signs Vital Sign Reading [...] 08/22/2022 9:31 AM CDT Plan of Treatment Not on file Insurance Care Teams Statement Request Clerk Relationship Specialty Start Date End Date Ana Robles DO PCP - General Family Medicine 08/22/22
--- OUTSIDE RECORDS SUMMARY | 2024-10-24 10:46 | XMS_ITS | Data Portability ---
Author Organization [facility] Address [address] [place] [address] Care Team Providers Care Manager System Name Role Phone FOSTER DANIEL Primary Care Provider Assessment Encounter Date Assessment Date Assessment LastModified by Organization Details LastModified Time 10/29/2022 10/29/2022 Annual gynecological exam performed. Patient will come back in a year unless there are new symptoms. Suggest Calcium with Vitamin D if not eating in diet. Patient advised to get annual flu shot. Recommend yearly physicals and preform monthly breast exams. Genetic testing is available for patients with family history of cancer. Engage in safe sexual practices, use condoms. Encouraged to have daily exercise. Avoid tobacco and illicit drugs, moderation of alcohol. If BMI greater than 25 dietary consult advised. If you have any questions please call or email. mammogram order given Not available 10/29/2022 11:31:49 05/17/2024 05/17/2024 Annual gynecological exam performed. Patient will come back in a year unless there are new symptoms. [email or web address] Not available 05/13/2024 11:06:00 Plan of Treatment Reminders Order Date Submit Date Provider Last Modified By Organization Details Last Modified Time Details Appointments None recorded. Lab pap, IG + HR HPV - HPV regardless but if HPV is positive need subtyping 16,18/45 2024 025 [facility] (Lab), [address], [place], [address], 11:25:23 Referral None recorded. Procedures None recorded. Surgeries None recorded. Imaging MAMMO, screening, digital, bilateral [address] [facility], [address], [place] [address], [place], [address], 5 11:25:31 Medication Orders phentermine 15 mg capsule 2022 023 [facility] #[id number], [address], [place], [place], [id number], 5 10:20:26 Wegovy 0.25 mg/0.5 mL subcutaneou s pen injector 2022 023 [email or web address] [id number], [address], [place], [place], [id number], 5 11:06:36 phentermine 15 mg capsule 2022 023 [email or web address] [facility] #[id number], [address], [place], [place], [id number], 5 10:20:26 phentermine 15 mg capsule 2022 023 [email or web address], [address], [place], [place], [id number], 5 10:20:26 topiramate 50 mg tablet 2022 023 [email or web address] [facility], [address], [place], [place], [id number], 5 10:20:32 Patient TargetsNo targets recorded. Patient InstructionsNo instructions recorded. Reason for Referral None Reported. Results Created Date Observation Date Name Description Value Unit Range Abnormal Flag Note LastModifiedBy Organization Detail LastModifiedTime 05/28/1905/28/2022 HEMOG LOBIN A1C hemoglobin A1C 5.6 % 0-5.6 The Ameri can [employer] [place] [employer] iatio n recom mends that a prima ry goal of thera py shoul d be a HBA1C of < 7% and that physi cians shoul d reeva luate the treat ment regim en in patie nts with HBA1C value s consi stent ly > 8%. <5.7% Pricilla l 5.7 - 6.4% Incre ased risk for diabe mariposa >=6.5 % Diagn ostic of diabe mariposa <7.0% Goal of thera py >8.0% Actio n sugge sted Not Available [facility] (Lab) [address], [place], [address], 05/29/2022 03:54:41 10/30/1910/29/2022 IMAGE GUIDE D PAP AND HPV REGAR DLESS image guided Pap, HPV regardless of Pap result SEE RESULT S BELOW CASE REPOR T: Cytol ogy Gynec ologi earl Repor t Case: [id number] Provi nena: Rosa Ramos NP Colle cted: 10/29 1636 Order ing Locat ion: [place] Patho log[facility] Recei anabel: 10/30 0240 First Scree n: Chey Vasquez een: Francisca blanco, Jessi, CT Speci men: Scree anthony Pap - Image d, Cervi x STATE MENT OF ADEQU ACY: Satis facto ry for evalu ation Trans forma tion zone compo nent absen t The absen ce of an endoc ervic al compo nent was confi rmed by an addit ional scree ner. FINAL DIAGN OSIS: Negat moses for Intra epith elial Jack allison or Magdalene morelos (NIL) . Astrid gallagher d by Jessi Starks, CT on 2022 at 6:06 PM ----- ----- ----- ----- ----- ----- ----- ----- ----- ----- ----- ----- ----- ----- ----- ----- ----- ---- HPV RESUL TS: HPV mRNA E6/E7 : No HPV mRNA Detec sonya NOTE: This high risk HPV mRNA assay detec ts fourt een high- risk HPV types (16, 18, 31, 33, 35, 39, 45, 51, 52, 56, 58, 59, 66, 68) witho ut diffe renti ation . COMME NT: This speci men was revie wed by a Cytot echno logis t and/o r Patho logis t (as indic ated in this repor t) after evalu ation using the Thinp rep Imagi ng Syste m. CLINI EARL INFOR MATIO N: Menst rual Statu s: LMP (if appli cable ): Clini earl Histo ry/Pr eviou s Pap: Type of Neopl sylvia (if appli cable ): Signi fican t Clini earl Findi ngs: Other Histo ry: Hormo tammie (if appli cable ): PAP EDUCA MECHE L NOTE: The Pap Test is a scree anthony test with an inher ent false negat moses rate. Liqui d-bas ed sampl ing may decre ase, but will not elimi charis, false negat moses resul ts. A negat moses resul t does not precl ude the prese nce and/o r devel opmen t of disea se, since the prese nce of abnor mal cells in the sampl e depen ds on the locat ion of the lesio n and sampl ing techn ique. Pedro nued regul ar scree anthony is the best metho d of cance r preve ntion . If repor sonya cytol ogic findi ng do not corre late with physi earl and/o r histo rical findi ngs, furth er inves tigat ion is recom gerda d, as clini yemi castillo nted. Not Available [facility] (Lab) [address], [place], [address], 10/30/2022 19:10:46 05/17/19 25 05/17/2024 IMAGE GUIDE D PAP AND HPV REGAR DLESS image guided Pap, HPV regardless of Pap result SEE RESULT S BELOW CASE REPOR T: Cytol ogy Gynec ologi earl Repor t Case: [id number] [address]opez Provi nena: Dermo dy, Ingrid , ANP, [employer] Colle cted: 05/17 1111 Order ing Locat ion: [place] [facility] [place] Recei anabel: 05/18 0207 First Scree n: Nancy Ron, CT Speci men: Ben cruz Pap - Image d, Cervi x STATE MENT OF ADEQU ACY: Satis facto ry for evalu ation Trans forma tion zone compo nent absen t ----- ----- ----- ----- ----- ----- ----- ----- ----- ----- ----- ----- ----- ----- ----- ----- ----- ---- FINAL DIAGN OSIS: Negat moses for Intra epith elial Jack allison or Magdalene morelos (NIL) . 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 COMME NT: This speci men was revie wed by a Cytot echno logis t and/o r Patho logis t (as indic ated in this repor t) after evalu ation using the Thinp rep Imagi ng Syste m. CLINI EARL INFOR MATIO N: Menst rual Statu s: LMP (if appli cable ): Clini earl Histo ry/Pr eviou s Pap: Type of Neopl sylvia (if appli cable ): Signi fican t Clini earl Findi ngs: Other Histo ry: Hormo tammie (if appli cable ): PAP EDUCA MECHE L NOTE: The Pap Test is a scree anthony test with an inher ent false negat moses rate. Liqui d-bas ed sampl ing may decre ase, but will not elimi charis, false negat moses resul ts. A negat moses resul t does not precl ude the prese nce and/o r devel opmen t of disea se, since the prese nce of abnor mal cells in the sampl e depen ds on the locat ion of the lesio n and sampl ing techn ique. Pedro nued regul ar scree anthony is the best metho d of cance r preve ntion . If repor sonya cytol ogic findi ng do not corre late with physi earl and/o r histo rical findi ngs, furth er inves tigat ion is recom gerda d, as clini yemi castillo nted. Not Available [facility] (Lab) [address] [facility], [place], [address], 05/20/2024 11:25:23 06/14/19 23 06/13/2022 elect americo mckeon am No observ ation record ed. [email or web address] [facility] ([facility]) [address] [facility] [address] [place] [address], [id number], 06/20/2022 15:26:22 07/12/19 23 07/11/2022 MAMMO , scree anthony, bilat eral No observ ation record ed. [email or web address], [address], 07/15/2022 18:35:41 07/12/19 23 07/11/2022 MAMMO , scree anthony, bilat eral No observ ation record ed. [email or web address] [place], [place] [id number] [facility] [address], [place], [address], 07/15/2022 18:35:41 08/06/19 23 08/05/2022 MAMMO , diagn ostic , digit al, bilat eral No observ ation record ed. [address], [place], [address], 08/06/2022 09:54:15 08/06/19 23 08/05/2022 MAMMO , diagn ostic , digit al, bilat eral No observ ation record ed. [address], [place], [address], 08/06/2022 09:55:37 Result Notes None recorded. Procedures Surgical History Date Name Laterality Status Provider Name and Address Organization Details Recorded Time 09/28/19 24 Date of Last Mammogram completed Radha Morrison [facility] 05/17/2024 10:20:16 10/30/19 23 Date of Last Pap Smear completed Celia Stein [facility] 10/29/2022 12:38:50 04/06/19 00 [facility] 12:30:54 04/06/19 00 discectomy of spine completed Celiamelida Stein [facility] 01/22/2020 12:31:27 04/06/18 98 Colposcopy completed Celiamelida Stein [facility] 12/18/2021 20:18:20 04/06/18 98 [facility]/22[facility]2020 12:30:31 04/06/18 98 cone biopsy completed Celiamelida Stein [facility] 10/23/2021 10:50:03 01/01/19 97 termination of completed Celia Hwangtz [facility] 12/18/2021 20:17:26 04/06/18 94 termination of completed Celia Hwangtz [facility] 12/18/2021 20:17:22 04/06/18 90 termination of completed Celia Stein [facility] 12/18/2021 20:17:20 Imaging Results None recorded. Procedure Notes None recorded. Medical Equipment None Reported. Allergies Allergen ID Allergen Name Allergen Category Reaction Reaction Severity Criticality Documentation Date Start Date Code Code System Note Provider Name and Address Organization Details Recorded Time 92404 Product containin g penicilli n (product) medicatio n hives severe Not available 03/23/2020 54984 8001 SNOMED Celia Stein [facility] 2 10:47:23 12321 metronida zole medicatio n hives severe Not available 10/23/2021 6922 RxNorm Celia Stein [facility] 2 10:47:23 Medications Name Sig Start Date Stop Date Status Note LastModified by Organization Details LastModified Time nystatin 100,000 unit/mL oral suspensio n SWISH GARGLE AND SPIT 4 ML BY MOUTH THREE TIMES DAILY FOR 14 DAYS 10/23 completed Not Available Not Available Not Available venlafaxi ne ER 37.5 mg capsule,e xtended release 24 hr TAKE 1 CAPSULE BY MOUTH EVERY DAY 10/29 completed Not Available Not Available Not Available atorvasta tin 10 mg tablet TAKE 1 TABLET BY MOUTH DAILY active Not Available Not Available No t Available moxifloxa fish 400 mg tablet TAKE 1 TABLET BY MOUTH DAILY FOR 10 DAYS 10/23 completed Not Available Not Available Not Available phentermi ne 15 mg capsule Take 1 capsule every day by oral route. 05/17 completed Not Available Not Available Not Available Celebrex 200 mg capsule Take 200mg PO the night before the procedur e and 400mg PO the morning of the procedur e 08/24 completed Prescrib ed Elsewher e: No Locat ion: [facility] odify By: brianda villafuerte DateTime : 05/10/19 15 12:12:22 PM Not Available Not Available Not Available Metrogel Vaginal 0.75 % (37.5 mg/5 gram) insert 1 applicat orful (37.5MG) by vaginal route every day at bedtime 07/29 completed Prescrib ed Elsewher e: No Locat ion: [facility]ify By: bryant noland DateTime : 01/12/20 12 09:28:35 AM Not Available Not Available Not Available Multiple Vitamins tablet take 1 tablet by oral route every day with food 01/05 completed Prescrib ed Elsewher e: No Locat ion: [facility]ify By: tamra villafuerte DateTime : 05/05/19 12 04:30:00 PM Not Available Not Available Not Available omeprazol e 20 mg capsule,d elayed release TAKE 1 CAPSULE BY MOUTH DAILY 10/23 completed Not Available Not Available Not Available azelastin e 137 mcg (0.1 %) nasal spray USE 1 SPRAY IN EACH NOSTRIL EVERY 12 HOURS active Not Available Not Available No t Available diazepam 10 mg tablet Take 10mg PO 1-2 hours before the procedur e 08/24 completed Prescrib ed Elsewher e: No Locat ion: [facility]ify By: brianda villafuerte DateTime : 05/10/19 15 12:12:22 PM Not Available Not Available Not Available methylpre dnisolone 4 mg tablets in a dose pack FOLLOW PACKAGE DIRECTIO NS 05/13 completed Not Available Not Available Not Available albuterol sulfate HFA 90 mcg/actua tion aerosol inhaler INHALE 2 PUFFS BY MOUTH EVERY 4 HOURS NEEDED FOR SHORTNES S OF BREATH OR WHEEZING active Not Available Not Available No t Available Vitamin D2 1,250 mcg (50,000 unit) capsule take 1 capsule by oral route every week 2014 active Prescrib ed Elsewher e: No Locat ion: [facility]ify By: ct Mai ncounter DateTime : 08/30/19 11:40:09 AM Not Available Not Available Not Available cefdinir 300 mg capsule TAKE 1 CAPSULE BY MOUTH EVERY 12 HOURS FOR 10 DAYS 10/29 completed Not Available Not Available Not Available fluticaso ne propionat e 50 mcg/actua tion nasal spray,[employer] SHAKE LIQUID AND USE 1 TO 2 SPRAYS IN EACH NOSTRIL TWICE DAILY active Not Available Not Available No t Available doxycycli ne hyclate 100 mg tablet TAKE 1 TABLET BY MOUTH TWICE DAILY 05/17 completed Not Available Not Available Not Available amoxicill in 875 mg-potass ium clavulana te 125 mg tablet TAKE 1 TABLET BY MOUTH TWICE DAILY 05/13 completed Not Available Not Available Not Available Cynthia 0.35 mg tablet take 1 tablet by oral route every day 10/23 completed Prescrib ed Elsewher e: No Locat ion: [facility] odify By: chantelle villafuerte DateTime : 11/24/19 19 02:55:00 PM Not Available Not Available Not Available topiramat e 50 mg tablet TAKE 1 TABLET BY MOUTH TWICE DAILY 05/17 completed Not Available Not Available Not Available Safyral 3 mg-0.03 mg-0.451 mg (21)/0.45 1 mg (7) tablet once daily 08/28 completed Prescrib ed Elsewher e: No Locat ion: [facility] odify By: sundar Warren ntchavez DateTime : 01/31/20 15 02:05:52 PM Not Available Not Available Not Available Vicodin 5 mg-300 mg tablet Take 2 tabs PO 2 hours before the procedur e 08/24 completed Prescrib ed Elsewher e: No Locat ion: [facility] odify By: brianda villafuerte DateTime : 05/10/19 15 12:12:22 PM Not Available Not Available Not Available ID NOW COVID-19 Test Kit TEST DIRECTED 10/29 completed Not Available Not Available Not Available BinaxNOW COVID-19 Ag Self Test kit TEST DIRECTED TODAY 10/29 completed Not Available Not Available Not Available Wegovy 2.4 mg/0.75 mL subcutane ous pen injector ADMINIST ER 2.4 MG UNDER THE SKIN WEEKLY active Not Available Not Available No t Available Wegovy 1.7 mg/0.75 mL subcutane ous pen injector INJECT 1.7MG UNDER THE SKIN ONCE WEEKLY ON WEEKS 13-16 05/13 completed Not Available Not Available Not Available Wegovy 1 mg/0.5 mL subcutane ous pen injector INJECT 1 MG SUBCUTAN EOUSLY WEEKLY. 05/13 completed Not Available Not Available Not Available Wegovy 0.25 mg/0.5 mL subcutane ous pen injector ADMINIST ER 0.25 MG UNDER THE SKIN EVERY WEEK 05/13 completed Not Available Not Available Not Available Vitals Date Recorded Body weight Body mass index (BMI) Body height Systolic And Diastolic Provider Name and Address Organization Details Last Updated DateTime 05/17/2024 51840.34 g 35.6 kg/m2 162.56 cm 121/79 mm[Hg] Radha Mayston [facility] 05/17/2024 10:19:47 Date Recorded Body height Body mass index (BMI) Body weight Systolic And Diastolic Provider Name and Address Organization Details Last Updated DateTime 06/10/2022 162.56 cm 41.5 kg/m2 925790.35 g 138/89 mm[Hg] [facility] 06/10/2022 17:21:24 Date Recorded Body height Body mass index (BMI) Body weight Systolic And Diastolic Provider Name and Address Organization Details Last Updated DateTime 07/15/2022 162.56 cm 40.5 kg/m2 554279.8 g 140/88 mm[Hg] [facility] 07/15/2022 09:42:48 Date Recorded Body height Body mass index (BMI) Body weight Systolic And Diastolic Provider Name and Address Organization Details Last Updated DateTime 08/26/2022 162.56 cm 40 kg/m2 389858.02 g 111/92 mm[Hg] Fiona Jeffries [facility] 08/26/2022 10:36:48 Date Recorded Body height Body mass index (BMI) Body weight Systolic And Diastolic Provider Name and Address Organization Details Last Updated DateTime 10/29/2022 162.56 cm 39.7 kg/m2 026511.84 g 124/82 mm[Hg] Celia Stein [facility] 10/29/2022 11:07:54 Social History Question Answer Notes LastModified by Organizat ion Details LastModified Time Tobacco Smoking Status Current Every Day Smoker Celia Stein [facility], [facility] 10/23/2021 10:47:24 Do You Have An Advance Directive? No [email or web address] Information n ot available 10/23/2021 Are You Blind Or Do You Have Difficulty Seeing? No Information n ot available 10/23/2021 What Is Your Level Of Caffeine Consumption? Moderate [email or web address] Information not available 10/23/2021 How Much Tobacco Do You Chew? None [email or web address] Information not available 10/23/2021 In The 14 Days Before Symptom Onset, Have You Had Close Contact With A Laboratory-confirm ed COVID-19 While That Case Was Ill? No [email or web address] Information n ot available 10/23/2021 In The 14 Days Before Symptom Onset, Have You Had Close Contact With A Person Who Is Under Investigation For COVID-19 While That Person Was Ill? No [email or web address] Information not available 10/23/2021 Have You Been To An Area Known To Be High Risk For COVID-19? No [email or web address] Information not available 10/23/2021 Are You Deaf Or Do You Have Serious Difficulty Hearing? No [email or web address] Information not available 10/23/2021 What Type Of Diet Are You Following? REGULAR [email or web address] Information n ot available 10/23/2021 What Is The Highest Grade Or Level Of School You Have Completed Or The Highest Degree You Have Received? WS77324-5 [email or web address] Information not available 10/23/2021 Are There Any Guns Present In Your Home? No [email or web address] Information not available 10/23/2021 What Was The Date Of Your Most Recent Tobacco Screening? 10/29/2022 [email or web address] Information not available 10/29/2022 Do You Use Protection During Sex? No [email or web address] Information not available 10/23/2021 Do You Use Your Seat Belt Or Car Seat Routinely? Yes [email or web address] Information not available 10/23/2021 Do You Have Smoke And Carbon Monoxide Detectors In Your Home? Yes [email or web address] Information not available 10/23/2021 At What Age Did You Start Smoking Tobacco? 46 [email or web address] Information not available 10/23/2021 How Much Tobacco Do You Smoke? 1 PPD [email or web address] Information not available 01/22/2020 Do You Use Sunscreen Routinely? No [email or web address] Information not available 10/23/2021 How Many Years Have You Smoked Tobacco? 15 [email or web address] Information not available 05/17/2024 Have You Used IV Drugs? No [email or web address] Information not available 10/23/2021 Do You Have Difficulty Walking Or Climbing Stairs? No [email or web address] Information not available 10/23/2021 Sex: Unknown Functional Status Question Answer Note LastModified by Organizat ion Details LastModified Time Do you use any illicit or recreational drugs? No [email or web address] Information not available 10/23/2021 What is your level of alcohol consumption? Occasional [email or web address] Information not available 01/22/2020 Do you or have you ever used smokeless tobacco? Never used smokeless tobacco [email or web address] Information not available 10/23/2021 Are you able to walk? YESWOREST [email or web address] Information not available 10/23/2021 Are you able to care for yourself? Yes [email or web address] Information not available 10/23/2021 What is your occupation? [employer] [email or web address] Information not available 10/23/2021 Do you have difficulty dressing or bathing? No Information not available 10/23/2021 Do you or have you ever used e-cigarettes or vape? Never used electronic cigarettes [email or web address] Information not available 10/23/2021 What is your exercise level? Occasional [email or web address] Information not available 10/23/2021 Mental Status Question Answer Note LastModified by Organization D etails LastModified Time Do you feel stressed (tense, restless, nervous, or anxious, or unable to sleep at night)? [id number] [email or web address] Information not available 10/23/2021 Family History Relationship Description Onset Age of this Age Resolved Age Notes LastModified by Organization Details LastModified Time Sister Malignant tumor of colon [email or web address] Not available 01/19 13:04:14 Sister Diabetes mellitus [email or web address] Not available 01/21 12:32:03 Daughter Malignant tumor of cervix daught er 07/2019 Not available 01/22/2020 12:33:09 Mother Amyotrophic lateral sclerosis [email or web address] Not available 05/07 10:13:12 Brother Asthma [email or web address] Not availabl e 01/22/2020 12:32:33 Medical History Condition Response Allergies (Food, seasonal, environmental ) N Other N Breast Cancer N Drug/Latex Allergies/Reactions Y Blood Transfusion N Dermatologic Disorders N Lung Disease N Defects or Inherited Disease N Breast Problem N Gestational Diabetes N Hematologic disorders N Anesthesia Complications N History of STI N Deep Vein Thrombosis N Polycystic ovary syndrome N Anxiety Disorder N Autoimmune disease N Arthritis N Infertility N Polyps N Acid Reflux (GERD) Y History of abnormal pap Y Cancer N Stroke N Varicosities N Neurologic/Epilepsy N Endometriosis N High Cholesterol Y Headaches N Fibromyalgia N Kidney Disease N Heart Problems N Kidney or Bladder Problems N Thyroid Problems N GI Problems N Eating Disorder N Anemia N Art (IVF or FET) N Psychiatric Illness N Ovarian Cancer N Diabetes N Pulmonary (TB, Asthma) N Hepatitis/Liver Disease N No Past Medical History N Eczema N Urinary Tract Infection N Abuse/Domestic Violence N Asthma N Trauma/Violence N Depression/ depression N Heart Disease N Pre-Eclampsia N Hypertension N Osteoporosis N Thrombophilias N Gynecological History Statement/Question Response Abnormal Pap Y Date of Last Mammogram 09/28/2023 Date of LMP 04/06/2015 N On BCP's at Conception? N STIs/STDs N Was last menstrual period normal Y HPV Vaccine N Colposcopy 04/06/1997 Duration of Flow (days) 4 Current Control Method Menopause Age at First Child 18 If Post Menopausal, Age at Menopause 55 Frequency of Cycle (Q days) 82 Sexually Active? Y Date of DEXA bone scan 11/29/2021 Age of first menstrual cycle 15 Date of Last Pap Smear 10/29/2022 Sexual Problems? N LMP Unknown N Obstetrics History GPAL:G 5 P 2 0 3 2 Type Value Full Term 2 Induced 3 Living 2 Total 5 Past Encounters Encounter ID Performer Location Encounter Start Date Encounter Closed Date Diagnosis/Indication Diagnosis SNOMED-CT Code Diagnosis ICD10 Code Diagnosis Note [id number] Rosa Espino Jordan [facility] [address] [address] 01/20/2020 10:13:25 01/20/2020 13:25:31 Gynecologic examination 57871462 Z01.419 [id number] Rosa Espino Felicia [facility] [address],[facility] [place] [address] 10/23/2021 10:17:54 10/23/2021 11:40:03 Gynecologic examination 33000906 Z01.419 Menopausal flushing 1983 48484 N95.1 reviewed se risks and benefits if any suicidal thoughts to ED, f/u 3 mo med check monitor hot flashes [id number] Kareem Chen MD [facility] [address] [address] 05/10/2022 12:40:57 05/13/2022 15:03:39 Obesity 404373507 E66.9 This patient is a 56-year-ol d female who presents for weight management . We took a very thorough history. We talked about some of her goals. Talked about some of her challenges . We talked about some of her previous efforts in weight loss and her activity level. We talked about limitation s for activity. Talked about energy consumptio n energy expenditur e. She was given recommenda tions and some of these areas. We talked about the importance of resistance training and cardiovasc ular exercise. We talked about her medical history in its relationsh ip to excess body weight. We talked about treatment options. We talked about the evaluation that is appropriat e for beginning weight management . We talked about her diet and our dietitian. We agreed to a dietitian consult. We agreed to a sleep study. We agreed to metabolic testing. We performed body compositio n testing today. We reviewed those results and talked about their significan ce. We spent over 1 hour together. More than 50% was counseling . We agreed to come together in 2 weeks and initiate treatment. patient may have some issues with depression . She is to have a hemoglobin A1c drawn. She should have a sleep study. She needs a dietitian consult. We talked about exercise in detail. I gave her some ideas about resistance training and some recommenda tions on walking and some exertional activity. She return in 2 weeks for discussion evaluation and considerin g at treatment options. [id number] Kareem Chen MD [facility] [address],[place] [address] 06/10/2022 16:51:51 06/10/2022 18:24:19 Obesity [id number] E66.9 this patient is a 56-year-ol d female presents for follow-up on weight management . We are here to discuss starting weight loss medication . We spent over 40 minutes face-to-fa ce. More than 50% was counseling . We talked about all of the medication s that are available. We talked about the FDA approved medication s and some off-label uses of medication s. Talked about mechanisms of action. We talked about side effects we talked about cost. We agreed to start phentermin e and topiramate at this time. She is going to check on Ozempic and Wegovy. She will return in 1 month. She is going to have an EKG. [id number] Kareem Chen MD [facility] [address],[place] [address] 07/15/2022 09:36:15 07/15/2022 15:39:12 Obesity [id number] E66.9 This patient is a 56-year-ol d female presents for follow-up on weight management . She is been using phentermin e to some effect. She has lost 6 lb in 1 month. She notices the effect on her appetite and satiety. She has increased energy. We talked about basal constricti on wrist of topiramate . This seems to be negligible . Talked about the use of the G LP 1 agonist. We are going to try to get that approved through her insurance. At as of now going to continue with the phentermin e at the same dose. Along with topiramate we spent 20 minutes face-to-fa ce. More than 50% was counseling . she was seen by Cardiology and they indicated her that phentermin e is safe in her cardiac status. She had echocardio gram. [id number] Kareem Chen MD [facility] [address] [address] 08/26/2022 09:57:57 08/28/2022 14:28:19 Obesity [id number] E66.9 57-year-ol d female presents for follow-up on obesity. She is working on refining her diet, she is seeing the dietitian, she is trying to get more active. She is going to continue on lowest dose of phentermin e. Id she is going to you to work on exercise and diet. She will follow-up in 1 month. We spent 20 minutes face-to-fa ce. More than 50%. [id number] Rosa Duarte CNM [facility] [address],[facility] [place] [address] 10/29/2022 10:44:45 10/29/2022 11:41:43 Gynecologic examination [id number] Z01.419 Z11.51 [id number] Kareem Chen MD [facility] [address] [address] 05/17/2024 10:12:58 05/17/2024 10:53:52 Screening mammography [id number] Z12.31 Gynecologi c examination [id number] Z01.419 Annual gynecologi earl exam performed. Patient will come back in a year unless there are new symptoms. Suggest Calcium with Vitamin D if not eating in diet. Patient advised to get annual flu shot. Recommend yearly physicals and perform monthly breast exams. Genetic testing is available for patients with family history of cancer. Engage in safe sexual practices, use condoms. Encouraged to have daily exercise. Avoid tobacco and illicit drugs, moderation of alcohol. If BMI greater than 25 dietary consult advised. If you have any questions please call or email. mammogram- UTD, order given colon cancer screening - UTD (2023- [facility]), q 5 years for FH DEXA scan- UTD (2021 - WN) Pap smear- pap w/ HPV collected laboratory evaluation - PCP STI testing - declined Health Concerns Section Related Observation LastModified by Organization Detai ls LastModified Time None Recorded Concern Status LastModified by Organization Details LastModified Time None Recorded Advance Directives Directive N: Payers Insurance Date Sequence Insurance Name Policy Number Policy Bess Covered Member ID Bess Member ID Guarantor Name 05/17/2024 1 [place] 113 Lakia Dutta [id number] Lakia Dutta Notes Date Note Type Note Provider Name and Address Organization Details Recorded Time 06/10/2022 text/html this patient is a 56-year-old female presents for follow-up on weight management. We are here to discuss starting weight loss medication. We spent over 40 minutes [id number]. More than 50% was counseling. We talked about all of the medications that are available. We talked about the FDA approved medications and some off-label uses of medications. Talked about mechanisms of action. We talked about side effects we talked about cost. We agreed to start phentermine and topiramate at this time. She is going to check on Ozempic and Wegovy. She will return in 1 month. She is going to have an EKG. Kareem Chen MD [address], [place], [address], [facility] 06/10/2022 18:07:59 07/15/2022 text/html This patient is a 56-year-old female presents for follow-up on weight management. She is been using phentermine to some effect. She has lost 6 lb in 1 month. She notices the effect on her appetite and satiety. She has increased energy. We talked about basal constriction wrist of topiramate. This seems to be negligible. Talked about the use of the G LP 1 agonist. We are going to try to get that approved through her insurance. At as of now going to continue with the phentermine at the same dose. Along with topiramate we spent 20 minutes [id number]. More than 50% was counseling Kareem Chen MD [address], [place], [address], [facility] 07/15/2022 15:15:44 08/26/2022 text/html 57-year-old danika luque presents for follow-up on obesity. She is working on refining her diet, she is seeing the dietitian, she is trying to get more active. She is going to continue on lowest dose of phentermine. Id she is going to you to work on exercise and diet. She will follow-up in 1 month. We spent 20 minutes [id number]. More than 50%. Kareem Chen MD [address], [place], [address], [facility] 08/27/2022 23:41:54 10/29/2022 text/html Annual GYNReport ed bypatient.History:no gynecologic complaints; ? 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 Post-MenopausalRepor sonya bypatient.Menopausal Symptoms:no menopausal symptoms; normal vaginal lubrication Vaginal Bleeding:history of menopause having occurred; no history of post menopausal bleeding Urinary Symptoms:no hematuria; no incontinence; no nocturia; no urinary frequency Vulva:no genital lesion; no vulvar atrophy Vagina:normal vaginal discharge; no vaginal atrophy Breast:no breast lump; no nipple discharge; no breast pain Sexual Complaints:no sexual complaints Psychological Symptoms:no depression; no anxiety Preventive Measures:encourage regular mammograms starting age 40; encourage self breast examination; encourage regular exercise; encourage no tobacco use INGRID HARPER, MIGUEL [address], [place], [address], [place] [facility] 05/17/2024 10:46:05 OBGyn Episode Ob Episode Information Episode Created Date Number of Fetuses Patient Bloodtype Patient rh Status Prepregnancy Weight lbs Domestic Partner Domestic Partner Phone Father Name Veterinary Radiologist Status 01/22/20 20 1 CLOSED Fetus Data First Name Last Name Admitted to NICU Weight (g) Sex Living Outcome Pediatric Complications Fetus ID Race Codes Race Delivery Type , Induced 5430 Sin Calculation Initial Sin Date Initial Exam Date Initial Exam Provider Initial Ultrasound Date Last Menstrual Period Date Ultra Sound Weeks Gestation 0 Eighteen To Twenty Week Sin Update Ultra Sound Date Fundal Height At Umbil Quickening Date Ultra Sound Latest Weeks Gestation Final Sin Confirmed By Final Sin Confirmed Date Final Sin Date Ultra Sound Latest Days Gestation 0 0 Menstrual History Last Menstrual Date Menses Monthly On Bcp Conception Prior Menses Frequency Hcg Plus Date Menarche Onset Age Delivery Information Delivery Date Delivery Type Labor Anesthesia Weeks Gestation Incision Type Labor Labor Length Hrs Delivered By Post Complications Tubal Sterilization Discharge Date Comments 4 1993 induced Discharge Information Feeding Method Contraceptive Method Maternal HG B and HCT Levels Ob Episode Information Episode Created Date Number of Fetuses Patient Bloodtype Patient rh Status Prepregnancy Weight lbs Domestic Partner Domestic Partner Phone Father Name Veterinary Radiologist Status 01/22/20 20 1 CLOSED Fetus Data First Name Last Name Admitted to NICU Weight (g) Sex Living Outcome Pediatric Complications Fetus ID Race Codes Race Delivery Type 3175.14 4 M Full Term 5428 Vaginal Delivery Sin Calculation Initial Sin Date Initial Exam Date Initial Exam Provider Initial Ultrasound Date Last Menstrual Period Date Ultra Sound Weeks Gestation 0 Eighteen To Twenty Week Sin Update Ultra Sound Date Fundal Height At Umbil Quickening Date Ultra Sound Latest Weeks Gestation Final Sin Confirmed By Final Sin Confirmed Date Final Sin Date Ultra Sound Latest Days Gestation 0 0 Menstrual History Last Menstrual Date Menses Monthly On Bcp Conception Prior Menses Frequency Hcg Plus Date Menarche Onset Age Delivery Information Delivery Date Delivery Type Labor Anesthesia Weeks Gestation Incision Type Labor Labor Length Hrs Delivered By Post Complications Tubal Sterilization Discharge Date Comments 9 40 Discharge Information Feeding Method Contraceptive Method Maternal HG B and HCT Levels Ob Episode Information Episode Created Date Number of Fetuses Patient Bloodtype Patient rh Status Prepregnancy Weight lbs Domestic Partner Domestic Partner Phone Father Name Veterinary Radiologist Status 01/22/20 1 CLOSED Fetus Data First Name Last Name Admitted to NICU Weight (g) Sex Living Outcome Pediatric Complications Fetus ID Race Codes Race Delivery Type , Induced 5429 Sin Calculation Initial Sin Date Initial Exam Date Initial Exam Provider Initial Ultrasound Date Last Menstrual Period Date Ultra Sound Weeks Gestation 0 Eighteen To Twenty Week Sin Update Ultra Sound Date Fundal Height At Umbil Quickening Date Ultra Sound Latest Weeks Gestation Final Sin Confirmed By Final Sin Confirmed Date Final Sin Date Ultra Sound Latest Days Gestation 0 0 Menstrual History Last Menstrual Date Menses Monthly On Bcp Conception Prior Menses Frequency Hcg Plus Date Menarche Onset Age Delivery Information Delivery Date Delivery Type Labor Anesthesia Weeks Gestation Incision Type Labor Labor Length Hrs Delivered By Post Complications Tubal Sterilization Discharge Date Comments 0 1989 induced Discharge Information Feeding Method Contraceptive Method Maternal HG B and HCT Levels Ob Episode Information Episode Created Date Number of Fetuses Patient Bloodtype Patient rh Status Prepregnancy Weight lbs Domestic Partner Domestic Partner Phone Father Name Veterinary Radiologist Status 01/22/20 1 CLOSED Fetus Data First Name Last Name Admitted to NICU Weight (g) Sex Living Outcome Pediatric Complications Fetus ID Race Codes Race Delivery Type 3231.84 3 F Full Term 5427 Vaginal Delivery Sin Calculation Initial Sin Date Initial Exam Date Initial Exam Provider Initial Ultrasound Date Last Menstrual Period Date Ultra Sound Weeks Gestation 0 Eighteen To Twenty Week Sin Update Ultra Sound Date Fundal Height At Umbil Quickening Date Ultra Sound Latest Weeks Gestation Final Sin Confirmed By Final Sin Confirmed Date Final Sin Date Ultra Sound Latest Days Gestation 0 0 Menstrual History Last Menstrual Date Menses Monthly On Bcp Conception Prior Menses Frequency Hcg Plus Date Menarche Onset Age Delivery Information Delivery Date Delivery Type Labor Anesthesia Weeks Gestation Incision Type Labor Labor Length Hrs Delivered By Post Complications Tubal Sterilization Discharge Date Comments 5 40 in July 2019 of cervical cancer Discharge Information Feeding Method Contraceptive Method Maternal HG B and HCT Levels Ob Episode Information Episode Created Date Number of Fetuses Patient Bloodtype Patient rh Status Prepregnancy Weight lbs Domestic Partner Domestic Partner Phone Father Name Veterinary Radiologist Status 01/22/20 1 CLOSED Fetus Data First Name Last Name Admitted to NICU Weight (g) Sex Living Outcome Pediatric Complications Fetus ID Race Codes Race Delivery Type , Induced 5431 Sin Calculation Initial Sin Date Initial Exam Date Initial Exam Provider Initial Ultrasound Date Last Menstrual Period Date Ultra Sound Weeks Gestation 0 Eighteen To Twenty Week Sin Update Ultra Sound Date Fundal Height At Umbil Quickening Date Ultra Sound Latest Weeks Gestation Final Sin Confirmed By Final Sin Confirmed Date Final Sin Date Ultra Sound Latest Days Gestation 0 0 Menstrual History Last Menstrual Date Menses Monthly On Bcp Conception Prior Menses Frequency Hcg Plus Date Menarche Onset Age Delivery Information Delivery Date Delivery Type Labor Anesthesia Weeks Gestation Incision Type Labor Labor Length Hrs Delivered By Post Complications Tubal Sterilization Discharge Date Comments 199 7 1996 induced Discharge Information Feeding Method Contraceptive Method Maternal HG B and HCT Levels
== END 2024-10-24 10:35 | disposition home or self-care (01) ==
LOC: ANHIMG 10:35
PROVIDERS: PCP Family Medicine; Visit Provider Student in an Organized Health Care Education/Training Program
DX: Z12.31 Encounter for screening mammogram for malignant neoplasm of breast (principal); R92.8 Other abnormal and inconclusive findings on diagnostic imaging of breast
CPT/HCPCS: 77063; 77067

== ENCOUNTER 2024-11-16 10:47 | Outpatient (CLI) | payer BC, SELFPAY ==
--- NOTE | ~2024-11-16 | MMUS_ITS ---
EXAMINATION: MM diagnostic marcin RT w tommy, US breast RT complete HISTORY: Follow-up right breast mass TECHNIQUE: Additional 3-D tomosynthesis images of the right breast were performed and synthetic 2-D i mages were generated. CAD analysis was submitted and interpreted. High resolution complete right radha st ultrasound was performed. COMPARISON: 10/24/2024 BREAST PARENCHYMAL COMPOSITION: Not dense: There are scattered areas of fibroglandular density. FINDINGS: MAMMOGRAPHIC FINDINGS: There is a small mass in the upper central aspect of the right breast partially obscured by fibroglan dular tissue. No suspicious calcifications or architectural distortion. ULTRASOUND: Complete US of all 4 quadrants of the right breast/s and retroareolar region was reviewed. At 12:00, 2 cm from the nipple there is a 5 mm cyst which may correspond to the mammographic finding. IMPRESSION: 1. Benign cyst likely corresponds to the mammographic finding. 2. Recommend 6 month follow-up diagnostic right mammogram BI-RADS category 3, probably benign findings. Reviewed, dictated and finalized at location A. IMPRESSION: 1. Benign cyst likely corresponds to the mammographic finding. 2. Recommend 6 month follow-up diagnostic right mammogram BI-RADS category 3, probably benign findings.
--- OUTSIDE RECORDS SUMMARY | 2024-11-16 10:53 | XMS_ITS | Continuity of Care Document ---
Author Organization [facility] Address [address] [place] [address] [address] [place] [address] Phone Care Team Providers Care Systems Engineer Name Role Phone Dahiana Siu Unavailable Unavailable Advance Directives Directive Yes / No Effective Date File Name No Information Encounters Encounter Description Practice Location Reason(s) For Visit Diagnoses Date Provider Providers Copied on Encounter [facility], [id number] [place] [address] [address], [place], [place], [id number], [place] tel:[phone] SEC [facility] No Information [address] Sherron Talbot. [address] [facility] , [address], [place], [address], [place]. tel:[phone] Family History Family Member Type Diagnosis Age [...]
--- OUTSIDE RECORDS SUMMARY | 2024-11-16 10:53 | XMS_ITS | Clinical Summary ---
Author Organization [facility] [place] [address] Address [address] [place] [address] Care Team Providers Care Academic Services Professional Name Role Phone Ana Robles DO Primary Care Provider [phone] Allergies Active Allergy Reactions Criticality Noted Date [...] season) 2023 08/21/2021, 01/30/2021, 01/07/2021 Influenza Vaccine (#1) 2024 01/18/2021, 2019 DTaP/Tdap/Td Vaccine (2 - Td or Tdap) 06/08/203107/[address] [place] [address] Care Teams Academic Services Professional Relationship Specialty Start Date End Date Ana Robles DO PCP - General Family Medicine 08/22/22
== END 2024-11-16 10:48 | disposition home or self-care (01) ==
PROVIDERS: PCP Family Medicine; Visit Provider Family Medicine
DX: N63.10 Unspecified lump in the right breast, unspecified quadrant (principal); R92.8 Other abnormal and inconclusive findings on diagnostic imaging of breast
CPT/HCPCS: 76641; 77061; 77065; G0279